=== PATIENT | female | born 1955 | race Caucasian/White ===

== ENCOUNTER 2021-03-03 09:38 | Inpatient (IN) | payer MEDICARE, MEDICAID ==
[~2021-03-03] VITALS: Ht 152.4 cm; Wt 42.0 kg
[2021-03-03 10:16] LABS: Basophils # (auto) 0 10 ^3/uL (0-0.2); Eosinophils # (auto) 0 10 ^3/uL (0-0.8); Eosinophils % (auto) 0.3 % (0.0-7.0); Hematocrit 45.9 % (36.0-46.0); Hemoglobin 15.5 g/dL (12.2-16.2); Lymphocytes # (auto) 0.3 10 ^3/uL (0.4-5.4); Lymphocytes % (auto) 2.9 % (10.0-50.0); Mean Corpuscular Hemoglobin 27.8 pg (28.0-32.0); Mean Corpuscular Hgb Conc. 33.8 g/dL (32.0-36.0); Mean Corpuscular Volume 82.3 fL (80.0-100.0); Monocytes # (auto) 0.6 10 ^3/uL (0-1.3); Monocytes % (auto) 4.6 % (0.0-12.0); Neutrophils % (auto) 92.2 % (37.0-80.0); Nucleated Red Blood Cells % 0.1 %; Red Blood Cells 5.58 10^6/uL (4.0-5.20); Red Cell Distribution Width 14.2 % (11.8-14.3); White Blood Cell 11.9 10^3/uL (4.4-10.8)
[2021-03-03] MEDS ORDERED: ASCORBIC ACID 500 MG TAB PO ONE (10:45)
[2021-03-03] MEDS ORDERED: AZITHROMYCIN 500MG/ 250ML 250 ML IV ONE (10:45)
[2021-03-03] MEDS ORDERED: cefTRIAXone 1GM/50ML D5W 50 ML IV ONE (10:45)
[2021-03-03] MEDS ORDERED: DexAMETHasone SOD PHOS 10MG/1ML VIAL INJ IV ONE (10:45)
[2021-03-03] MEDS ORDERED: ZINC SULFATE 220mg CAP or TAB PO ONE (10:45)
[2021-03-03 10:51] LABS: Albumin 3.1 g/dL (3.4-5.0); Anion Gap 10 (5-15); Blood Urea Nitrogen 19 mg/dL (7-18); Calcium 8.7 mg/dL (8.5-10.1); Carbon Dioxide 25 mmol/L (21-32); Chloride 103 mmol/L (98-107); Glucose 131 mg/dL (74-106); Magnesium 2.7 mg/dL (1.6-2.6); Sodium 138 mmol/L (136-145)
[2021-03-03 10:59] LABS: Alanine Aminotransferase 44 U/L (13-56); Alkaline Phosphatase 81 U/L (45-117); Aspartate Aminotransferase 45 U/L (15-37); BUN/Creatinine Ratio 38.8; Bilirubin, Total 0.6 mg/dL (0.2-1.0); CRP High Sensitivity 5.42 mg/dL (< 0.3); GFR African American 163 mL/min; GFR Non-African American 135 mL/min; Total Protein 7.4 g/dL (6.4-8.2)
[2021-03-03] MEDS ORDERED: MORPHINE SULFATE INJECTION 2 MG/ML SYRG IV PRN ×3 (13:45→16:30)
[2021-03-03] MEDS ORDERED: NITROGLYCERIN 0.4 MG SL TAB SL PRN ×2 (13:45→16:30)
[2021-03-03] MEDS ORDERED: ACETAMINOPHEN 500 MG TAB PO PRN (16:30)
[2021-03-03] MEDS ORDERED: LORazepam 0.5 MG TAB PO PRN (16:30)
[2021-03-03] MEDS ORDERED: ALUM & MAG HYDROX-SIMETH LIQ(MAALOX) 30 ML PO PRN (16:30)
[2021-03-03] MEDS ORDERED: DOCUSATE SOD 100 MG CAP PO PRN (16:30)
[2021-03-03] MEDS ORDERED: HYDROcodone-ACET 5/325MG TAB PO PRN (16:30)
[2021-03-03] MEDS ORDERED: ONDANSETRON HCL 4 MG/2 ML VIAL IV PRN (16:30)
[2021-03-03] MEDS ORDERED: ACETAMINOPHEN 325 MG TAB PO PRN (16:30)
[2021-03-03] MEDS ORDERED: REMDESIVIR PER PHARMACY 0 ML IV SCH (16:30)
[2021-03-03 17:00] VITALS: BP 118/82
[2021-03-03] MEDS: SOD CHL 0.45% 1,000 ML IV SCH (17:19)
[2021-03-03] MEDS: CHOLECALCIFEROL (VITD3) 2,000 UNIT CAP/TAB PO SCH (17:20)
[2021-03-03] MEDS ORDERED: REMDESIVIR 200 MG in NS 210ml LOADING DOSE ADULT IV ONE ×2 (18:00→20:00)
[2021-03-03 20:33] VITALS: BP 118/82
[2021-03-03] MEDS: FLORASTOR (S. BOULARDII) 250 MG CAP PO SCH (21:20)
[2021-03-03] MEDS: ENOXAPARIN SOD 40 MG/0.4 ML SYRINGE SC SCH (21:21)
[2021-03-03] MEDS: ATORVASTATIN 20 MG TAB PO SCH (21:21)
[2021-03-03 22:00] VITALS: BP 116/76
[2021-03-03] MEDS: BUDESONIDE (INHALATION) 180 MCG IH IN SCH (22:00)
[2021-03-03] MEDS: DOXYCYCLINE 100MG/250ML 250 ML IV SCH (22:51)
[2021-03-04 04:41] LABS: Amphetamine Screen, Urine NEGATIVE (NEGATIVE); Barbiturate Scree,Urine NEGATIVE (NEGATIVE); Benzodiazephine Screen, Urine NEGATIVE (NEGATIVE); Cannabinoid Screen, Urine NEGATIVE (NEGATIVE); Cocaine Screen, Urine NEGATIVE (NEGATIVE); Opiate Scree,Urine NEGATIVE (NEGATIVE); Phencyclidine Screen, Urine NEGATIVE (NEGATIVE)
[2021-03-04 04:43] LABS: Urine Bacteria FEW /hpf (None Seen); Urine Blood Negative /uL (Negative); Urine Hyaline Cast FEW /lpf (0 - 2); Urine Mucus FEW (None Seen); Urine Specific Gravity 1.035 (1.001-1.035); Urine WBC 17 /hpf (0 - 5)
[2021-03-04 05:00] VITALS: BP 129/80
[2021-03-04] MEDS: ALBUTEROL SULF HFA 90MCG INH 200DOSE IN PRN ×2 (07:31→22:07)
[2021-03-04] MEDS: BUDESONIDE (INHALATION) 180 MCG IH IN SCH ×2 (07:32→22:07)
[2021-03-04 08:08] LABS: Basophils # (auto) 0 10 ^3/uL (0-0.2); Basophils % (auto) 0.2 % (0.0-2.0); Eosinophils # (auto) 0 10 ^3/uL (0-0.8); Hematocrit 42.5 % (36.0-46.0); Hemoglobin 14.2 g/dL (12.2-16.2); Lymphocytes # (auto) 0.4 10 ^3/uL (0.4-5.4); Lymphocytes % (auto) 2.1 % (10.0-50.0); Mean Corpuscular Hemoglobin 27.5 pg (28.0-32.0); Mean Corpuscular Hgb Conc. 33.4 g/dL (32.0-36.0); Mean Corpuscular Volume 82.3 fL (80.0-100.0); Monocytes % (auto) 6.1 % (0.0-12.0); Neutrophils % (auto) 91.6 % (37.0-80.0); Nucleated Red Blood Cells % 0.1 %; Red Blood Cells 5.16 10^6/uL (4.0-5.20); Red Cell Distribution Width 14.1 % (11.8-14.3); White Blood Cell 16.4 10^3/uL (4.4-10.8)
[2021-03-04 08:21] LABS: Albumin 2.3 g/dL (3.4-5.0); BUN/Creatinine Ratio 61.3; Calcium 8.4 mg/dL (8.5-10.1); Potassium 3.5 mmol/L (3.5-5.1)
[2021-03-04 08:24] LABS: Bilirubin, Total 0.6 mg/dL (0.2-1.0); Total Protein 6.4 g/dL (6.4-8.2)
[2021-03-04 09:00] VITALS: BP 118/77
[2021-03-04] MEDS: DexAMETHasone SOD PHOS 10MG/1ML VIAL INJ IV SCH (09:54)
[2021-03-04] MEDS: CHOLECALCIFEROL (VITD3) 2,000 UNIT CAP/TAB PO SCH (09:54)
[2021-03-04] MEDS: DOXYCYCLINE 100MG/250ML 250 ML IV SCH ×2 (09:54→22:58)
[2021-03-04] MEDS: SOD CHL 0.45% 1,000 ML IV SCH (09:54)
[2021-03-04] MEDS: IVERMECTIN 3 MG TAB PO SCH (09:55)
[2021-03-04] MEDS: ENOXAPARIN SOD 40 MG/0.4 ML SYRINGE SC SCH (09:55)
[2021-03-04] MEDS: ASCORBIC ACID 1,000 MG TAB PO SCH (09:55)
[2021-03-04] MEDS: FLORASTOR (S. BOULARDII) 250 MG CAP PO SCH ×2 (09:55→22:58)
[2021-03-04] MEDS: ASPirin 81 mg TAB PO SCH (09:55)
[2021-03-04] MEDS: ZINC SULFATE 220mg CAP or TAB PO SCH (09:55)
[2021-03-04 13:00] VITALS: BP 122/75
[2021-03-04] MEDS: REMDESIVIR 100mg 100 MG in SODIUM CHL 0.9% 230 ML IV SCH (16:05)
[2021-03-04 17:00] VITALS: BP 111/70
[2021-03-04 22:00] VITALS: BP 105/74
[2021-03-04] MEDS: ATORVASTATIN 20 MG TAB PO SCH (22:59)
[2021-03-05] MEDS: SOD CHL 0.45% 1,000 ML IV SCH ×2 (01:50→18:30)
[2021-03-05 05:00] VITALS: BP 104/77
[2021-03-05 06:50] LABS: Basophils # (auto) 0 10 ^3/uL (0-0.2); Eosinophils # (auto) 0 10 ^3/uL (0-0.8); Hematocrit 40.9 % (36.0-46.0); Lymphocytes # (auto) 0.3 10 ^3/uL (0.4-5.4); Lymphocytes % (auto) 2.9 % (10.0-50.0); Mean Corpuscular Hemoglobin 28.3 pg (28.0-32.0); Mean Corpuscular Hgb Conc. 34.3 g/dL (32.0-36.0); Mean Corpuscular Volume 82.5 fL (80.0-100.0); Monocytes # (auto) 0.8 10 ^3/uL (0-1.3); Monocytes % (auto) 9.4 % (0.0-12.0); Neutrophils # (auto) 7.9 10 ^3/uL (1.6-8.6); Neutrophils % (auto) 87.7 % (37.0-80.0); Red Blood Cells 4.96 10^6/uL (4.0-5.20); Red Cell Distribution Width 14.1 % (11.8-14.3)
[2021-03-05] MEDS: BUDESONIDE (INHALATION) 180 MCG IH IN SCH ×2 (07:06→22:00)
[2021-03-05] MEDS: ALBUTEROL SULF HFA 90MCG INH 200DOSE IN PRN ×2 (07:07→22:46)
[2021-03-05 07:16] LABS: Chloride 107 mmol/L (98-107); Potassium 3.6 mmol/L (3.5-5.1); Sodium 139 mmol/L (136-145)
[2021-03-05 07:21] LABS: Anion Gap 8 (5-15); BUN/Creatinine Ratio 76.9; Blood Urea Nitrogen 20 mg/dL (7-18); Calcium 7.9 mg/dL (8.5-10.1); Carbon Dioxide 24 mmol/L (21-32); GFR African American 339 mL/min; GFR Non-African American 280 mL/min; Glucose 120 mg/dL (74-106)
[2021-03-05 08:00] VITALS: BP 97/70
[2021-03-05 09:00] VITALS: BP 97/70
[2021-03-05] MEDS: DOXYCYCLINE 100MG/250ML 250 ML IV SCH ×2 (10:16→21:31)
[2021-03-05] MEDS: IVERMECTIN 3 MG TAB PO SCH (10:17)
[2021-03-05] MEDS: ASCORBIC ACID 1,000 MG TAB PO SCH (10:18)
[2021-03-05] MEDS: ZINC SULFATE 220mg CAP or TAB PO SCH (10:18)
[2021-03-05] MEDS: FLORASTOR (S. BOULARDII) 250 MG CAP PO SCH ×2 (10:18→21:31)
[2021-03-05] MEDS: CHOLECALCIFEROL (VITD3) 2,000 UNIT CAP/TAB PO SCH (10:18)
[2021-03-05] MEDS: DexAMETHasone SOD PHOS 10MG/1ML VIAL INJ IV SCH (10:19)
[2021-03-05] MEDS: ENOXAPARIN SOD 40 MG/0.4 ML SYRINGE SC SCH (10:19)
[2021-03-05] MEDS: ASPirin 81 mg TAB PO SCH (10:19)
[2021-03-05 13:00] VITALS: BP 114/76
[2021-03-05] MEDS: REMDESIVIR 100mg 100 MG in SODIUM CHL 0.9% 230 ML IV SCH (15:03)
[2021-03-05 17:00] VITALS: BP 104/69
[2021-03-05] MEDS: ATORVASTATIN 20 MG TAB PO SCH (21:31)
[2021-03-05 22:00] VITALS: BP 91/65
[2021-03-06 05:00] VITALS: BP 103/66
[2021-03-06 07:06] LABS: Basophils # (auto) 0 10 ^3/uL (0-0.2); Basophils % (auto) 0.1 % (0.0-2.0); Eosinophils # (auto) 0 10 ^3/uL (0-0.8); Hematocrit 39.1 % (36.0-46.0); Hemoglobin 13.5 g/dL (12.2-16.2); Lymphocytes # (auto) 0.3 10 ^3/uL (0.4-5.4); Lymphocytes % (auto) 3.6 % (10.0-50.0); Mean Corpuscular Hemoglobin 28.3 pg (28.0-32.0); Mean Corpuscular Hgb Conc. 34.4 g/dL (32.0-36.0); Mean Corpuscular Volume 82.1 fL (80.0-100.0); Monocytes # (auto) 0.7 10 ^3/uL (0-1.3); Monocytes % (auto) 8.1 % (0.0-12.0); Neutrophils # (auto) 7.9 10 ^3/uL (1.6-8.6); Neutrophils % (auto) 88.2 % (37.0-80.0); Red Blood Cells 4.77 10^6/uL (4.0-5.20); Red Cell Distribution Width 13.7 % (11.8-14.3); White Blood Cell 8.9 10^3/uL (4.4-10.8)
[2021-03-06 07:14] LABS: Calcium 7.8 mg/dL (8.5-10.1); Potassium 3.6 mmol/L (3.5-5.1)
[2021-03-06 07:16] LABS: BUN/Creatinine Ratio 73.1
[2021-03-06 09:00] VITALS: BP 106/60
[2021-03-06] MEDS: ALBUTEROL SULF HFA 90MCG INH 200DOSE IN PRN ×2 (09:33→20:18)
[2021-03-06] MEDS: BUDESONIDE (INHALATION) 180 MCG IH IN SCH ×2 (09:33→20:18)
[2021-03-06] MEDS: DexAMETHasone SOD PHOS 10MG/1ML VIAL INJ IV SCH (09:45)
[2021-03-06] MEDS: FLORASTOR (S. BOULARDII) 250 MG CAP PO SCH ×2 (09:46→21:24)
[2021-03-06] MEDS: DOXYCYCLINE 100MG/250ML 250 ML IV SCH ×2 (09:46→21:24)
[2021-03-06] MEDS: CHOLECALCIFEROL (VITD3) 2,000 UNIT CAP/TAB PO SCH (09:46)
[2021-03-06] MEDS: ZINC SULFATE 220mg CAP or TAB PO SCH (09:46)
[2021-03-06] MEDS: IVERMECTIN 3 MG TAB PO SCH (09:46)
[2021-03-06] MEDS: ASPirin 81 mg TAB PO SCH (09:46)
[2021-03-06] MEDS: ASCORBIC ACID 1,000 MG TAB PO SCH (09:46)
[2021-03-06] MEDS: ENOXAPARIN SOD 40 MG/0.4 ML SYRINGE SC SCH (09:47)
[2021-03-06] MEDS: SOD CHL 0.45% 1,000 ML IV SCH (11:10)
[2021-03-06 13:00] VITALS: BP 104/72
[2021-03-06] MEDS: REMDESIVIR 100mg 100 MG in SODIUM CHL 0.9% 230 ML IV SCH (15:23)
[2021-03-06 17:00] VITALS: BP 100/65
[2021-03-06] MEDS: ATORVASTATIN 20 MG TAB PO SCH (21:24)
[2021-03-06 22:00] VITALS: BP 112/72
[2021-03-07] MEDS: SOD CHL 0.45% 1,000 ML IV SCH ×2 (03:50→20:30)
[2021-03-07 05:00] VITALS: BP 108/72
[2021-03-07 06:40] LABS: Basophils # (auto) 0 10 ^3/uL (0-0.2); Basophils % (auto) 0.2 % (0.0-2.0); Eosinophils # (auto) 0 10 ^3/uL (0-0.8); Eosinophils % (auto) 0.2 % (0.0-7.0); Hematocrit 38.3 % (36.0-46.0); Hemoglobin 13.1 g/dL (12.2-16.2); Lymphocytes # (auto) 0.6 10 ^3/uL (0.4-5.4); Lymphocytes % (auto) 5.2 % (10.0-50.0); Mean Corpuscular Hemoglobin 27.7 pg (28.0-32.0); Mean Corpuscular Hgb Conc. 34.2 g/dL (32.0-36.0); Mean Corpuscular Volume 80.8 fL (80.0-100.0); Monocytes # (auto) 0.9 10 ^3/uL (0-1.3); Monocytes % (auto) 7.3 % (0.0-12.0); Neutrophils # (auto) 10.6 10 ^3/uL (1.6-8.6); Neutrophils % (auto) 87.1 % (37.0-80.0); Red Blood Cells 4.74 10^6/uL (4.0-5.20); Red Cell Distribution Width 13.7 % (11.8-14.3); White Blood Cell 12.1 10^3/uL (4.4-10.8)
[2021-03-07 06:59] LABS: Calcium 7.7 mg/dL (8.5-10.1); Potassium 3.4 mmol/L (3.5-5.1)
[2021-03-07 07:02] LABS: BUN/Creatinine Ratio 62.5; Bilirubin, Total 0.5 mg/dL (0.2-1.0); CRP High Sensitivity 0.86 mg/dL (< 0.3)
[2021-03-07] MEDS: BUDESONIDE (INHALATION) 180 MCG IH IN SCH ×2 (08:01→20:00)
[2021-03-07] MEDS: ALBUTEROL SULF HFA 90MCG INH 200DOSE IN PRN ×2 (08:02→19:59)
[2021-03-07 09:00] VITALS: BP 98/67
[2021-03-07] MEDS: DexAMETHasone SOD PHOS 10MG/1ML VIAL INJ IV SCH (09:55)
[2021-03-07] MEDS: CHOLECALCIFEROL (VITD3) 2,000 UNIT CAP/TAB PO SCH (09:56)
[2021-03-07] MEDS: ENOXAPARIN SOD 40 MG/0.4 ML SYRINGE SC SCH (09:56)
[2021-03-07] MEDS: ZINC SULFATE 220mg CAP or TAB PO SCH (09:56)
[2021-03-07] MEDS: ASCORBIC ACID 1,000 MG TAB PO SCH (09:56)
[2021-03-07] MEDS: ASPirin 81 mg TAB PO SCH (09:56)
[2021-03-07] MEDS: FLORASTOR (S. BOULARDII) 250 MG CAP PO SCH ×2 (09:56→21:18)
[2021-03-07] MEDS: IVERMECTIN 3 MG TAB PO SCH (09:57)
[2021-03-07] MEDS: DOXYCYCLINE 100MG/250ML 250 ML IV SCH ×2 (09:58→21:19)
[2021-03-07] MEDS ORDERED: CHOL1CAP47 PO (12:04)
[2021-03-07] MEDS ORDERED: ASCO10003 PO (12:04)
[2021-03-07] MEDS ORDERED: ALBUAER3 IN (12:04)
[2021-03-07] MEDS ORDERED: DOXY-332 PO (12:04)
[2021-03-07] MEDS ORDERED: POTASSIUM EFFERVESENT TAB 25 MEQ GT ONE (12:15)
[2021-03-07] MEDS ORDERED: DEXA4TAB90 PO (13:17)
[2021-03-07] MEDS: REMDESIVIR 100mg 100 MG in SODIUM CHL 0.9% 230 ML IV SCH (16:40)
[2021-03-07] MEDS: ATORVASTATIN 20 MG TAB PO SCH (21:19)
[2021-03-07 22:00] VITALS: BP 105/66
[2021-03-08 05:00] VITALS: BP 119/72
[2021-03-08 08:44] VITALS: BP 109/72
[2021-03-08] MEDS: ASCORBIC ACID 1,000 MG TAB PO SCH (09:52)
[2021-03-08] MEDS: ENOXAPARIN SOD 40 MG/0.4 ML SYRINGE SC SCH (09:52)
[2021-03-08] MEDS: FLORASTOR (S. BOULARDII) 250 MG CAP PO SCH (09:52)
[2021-03-08] MEDS: ASPirin 81 mg TAB PO SCH (09:52)
[2021-03-08] MEDS: CHOLECALCIFEROL (VITD3) 2,000 UNIT CAP/TAB PO SCH (09:52)
[2021-03-08] MEDS: ZINC SULFATE 220mg CAP or TAB PO SCH (09:52)
[2021-03-08] MEDS: DOXYCYCLINE 100MG/250ML 250 ML IV SCH (09:53)
[2021-03-08] MEDS: IVERMECTIN 3 MG TAB PO SCH (09:53)
[2021-03-08] MEDS: DexAMETHasone SOD PHOS 10MG/1ML VIAL INJ IV SCH ×2 (09:53→09:59)
[2021-03-08] MEDS ORDERED: DexAMETHasone 4 MG TAB PO SCH (10:00)
[2021-03-08] MEDS ORDERED: DOXYCYCLINE 100 MG TAB/CAP PO SCH (10:00)
[2021-03-08 12:21] VITALS: BP 103/66
[2021-03-08] MEDS: ALBUTEROL SULF HFA 90MCG INH 200DOSE IN PRN ×2 (12:23→12:27)
[2021-03-08] MEDS: BUDESONIDE (INHALATION) 180 MCG IH IN SCH (12:23)
[2021-03-08 13:00] VITALS: BP 103/66
[2021-03-08] MEDS: SOD CHL 0.45% 1,000 ML IV SCH (13:10)
[2021-03-08 16:59] VITALS: BP 109/68
== END 2021-03-08 19:10 | disposition home health service (06) | DRG 720 ==
LOC: EDUNIT# 09:38 → ER 09:38 → EDBD 09:38 → OVERFLOW 13:40 → EAST 16:23
PROVIDERS: ADMIT Hospitalist; ATTEND Internal Medicine Pulmonary Disease
PROC: XW033E5 Introduction of Remdesivir Anti-infective into Peripheral Vein, Percutaneous Approach, New Technology Group 5 (ICD-10-PCS; principal; 2021-03-04)
DX: A41.89 Other specified sepsis (principal); J96.01 Acute respiratory failure with hypoxia; J12.82 Pneumonia due to coronavirus disease 2019; U07.1 COVID-19; R64 Cachexia; E44.0 Moderate protein-calorie malnutrition; R62.7 Adult failure to thrive; Q85.00 Neurofibromatosis, unspecified; Z68.1 Body mass index [BMI] 19.9 or less, adult
CPT/HCPCS: 36415; 36600; 71045; 80048; 80053; 80307; 81001; 82306; 82728; 82805; 83036; 83605; 83615; 83735; 84484; 85025; 85379; 86141; 87040; 87086; 87426; 93970; 94640; 96365; 96366; 96367; 96375; G0378; J0696; J1100; J3490